=== PATIENT | female | born 1930 | race African-American/Black ===

== ENCOUNTER 2017-03-03 07:53 | Inpatient (IN) ==
[2017-03-03 08:47] LABS: Basophils % 0.8 % (0.0-0.8); Eosinophils # 0.1 10*3/uL (0.0-0.87); Eosinophils % 3.6 % (0.00-10.9); Hematocrit 34.9 VOL% (35.7-47.0); Hemoglobin 12.1 GM/DL (12.0-16.0); Immature Granulocytes % 0.3 %; Immature Granulocytes Absolute 0.01 #; Lymphocytes # 1.4 10*3/uL (1.4-4.0); Lymphocytes % 35.7 % (21.3-54.2); Mean Corpuscular HGB Conc 34.7 GM/DL (32-36); Mean Corpuscular Hemoglobin 31 PG (27-34); Mean Corpuscular Volume 87.9 FL (87-102); Mean Platelet Volume 10.4 FL (9.6-12.0); Monocytes # 0.4 10*3/uL (0.11-0.8); Monocytes % 10.7 % (1.7-12.7); Neutrophils # 1.9 10*3/uL (1.4-7.4); Neutrophils % 48.9 % (38.7-73.9); Platelet Count 216 T/CUMM (130-400); Red Blood Count 3.97 MC/CUMM (3.8-5.5); Red Cell Distribution Width 13.2 % (9.3-17.3); White Blood Count 3.8 T/CUMM (4-12)
[2017-03-03 09:01] LABS: Apearance,Urine Slightly Hazy (Clear); Bilirubin,Urine Negative (Negative); Blood, Urine Negative (Negative); Glucose,Urine (UA) Negative (Negative); Ketones,Urine Negative (Negative); Nitrite,Urine Negative (Negative); Protein,Urine Negative; RBC,Urine 5 /HPF (0-4); Squamous Epithelial Cell,Urine Occasional /HPF (0-10); Urine Color Yellow (Yellow); Urine Specific Gravity 1.009 (1.001-1.035); Urine Urobilinogen < 2.0 EU/DL (0.2-1.0); WBC,Urine 102 /HPF (0-6)
--- NOTE | 2017-03-03 09:04 | XRay Report ---
XR chest 1V portable Indication: Chest pain Comparison: Chest x-ray dated July 22, 2014 Technique: Single frontal view of the chest. Findings: The cardiomediastinal silhouette is stable in configuration. Chronic change of the lungs without focal consolidation, pleural effusion, or pneumothorax. Visualized osseous and surrounding soft tissue structures appear grossly unchanged. IMPRESSION: Stable chest x-ray without acute cardiopulmonary process demonstrated. PROCEDURE INTERPRETED AT [facility] DEPARTMENT OF RADIOLOGY Final Report Signed by: Dr Sherif Mello
[2017-03-03 09:05] LABS: Albumin 3.4 G/DL (3.4-5.0); Bilirubin,Total 0.7 MG/DL (0.2-1.0); CKMB % 9.4 %; Magnesium 2.1 MG/DL (1.8-2.4); Potassium 4.3 MMOL/L (3.5-5.1); Total Protein 6.4 G/DL (6.4-8.3)
[2017-03-03 09:13] LABS: Troponin I Only 0.602 NG/ML (0.00-0.045)
--- NOTE | 2017-03-03 09:29 | Emergency Department Note ---
Hans Bell Brittany, am scribing for, and in the presence of, Manpreet Pozo MD 08:45. Sánchez Bell Phillip K, MD, personally performed the services described in this documentation, ascribed by Catia Maxwell in my presence, and it is both accurate and complete 928 . Arrival - Arrival Chief Complaint: Chest Pain Stated Complaint: Chest Pain ED Nursing Triage Note: Pt states that her chest pain started this morning at 0500. It is raidiating from the mid sternal region to her back on the right side. Denies any other complaints at present. Mode of Arrival: Stretcher Limitations: No Limitations Source: Patient, Family Time Seen by Provider: 03/03/17 08:14 - History of Present Illness HPI Narrative: This is an 86 y/o black female,who presents to the ED with c/o CP which started at 0500 this morning. She states she was at rest when the chest pain started. She notes the chest pain radiates into her back. She localizes the chest pain to the right chest area. She denies any cough, fever or SOB. She reports the chest pain comes and goes and lasts up to 2-3 minutes. Pt denies having a heart cath or stress test. Pt has no other complaints/pain in the ED at this time. Pt has a PMHx of HTN, thyroid disorder, and back/neck problems. Pt denies a surgical Hx. Pt denies a family medical Hx. Pt denies a social hx. Onset (ago): hour(s) (Started earlier this morning) Consistency: intermittent Severity: moderate Quality: aching Date of Last Menstrual Period: Hysterectomy Allergies/Adverse Reactions: Allergies Allergy/AdvReac Type Severity Reaction Status Date / Time No Known Allergies Allergy Verified 05/19/16 06:16 Home Medications: Home Medications Medication Instructions Recorded Confirmed Type Aspirin [Children's Aspirin] 81 mg PO DAILY 12/21/14 05/18/16 History Carvedilol [Coreg] 3.125 mg PO BID W/MEALS 12/21/14 05/19/16 History Meclizine [Antivert] 25 mg PO BID 12/21/14 05/19/16 History Cholecalciferol (Vitamin D3) 1,000 unit PO DAILY 05/18/16 05/19/16 History [Vitamin D3] Magnesium Oxide [Magnesium] 400 mg PO BID 05/18/16 05/19/16 History HYDROcodone/ACETAMIN 5-325 [[place] 1 - 2 tablet PO Q6H PRN #20 tablet 05/22/16 Rx 5-325] Review of System - Review of System 12 point system: reviewed and no additional remarkable complaints except as stated - Review of System Constitutional: Absent: fever Respiratory: Absent: cough Cardiovascular: Present: chest pain Gastrointestinal: Present: nausea Medical,Surgical,& Family Hx - Medical History Cardio: History of: Hypertension Neurology: No history of: Seizures Endocrine: History of: Thyroid Disorder Musculoskeletal: History of: Back/Neck Problems - Social History Smoking Status: Never smoker Frequency of Alcohol Use: None Type of Drug Use: None Exam Vital Signs: Vital Signs Temperature 96.8 F L 03/03/17 07:54 Pulse Rate 71 03/03/17 09:00 Respiratory Rate 25 H 03/03/17 09:00 Blood Pressure 146/67 03/03/17 09:00 O2 Sat by Pulse Oximetry 99 03/03/17 09:00 - General General appearance: alert, in no apparent distress - Head Head exam: Present: atraumatic, normocephalic, normal inspection - Eye Eye exam: Present: normal appearance, PERRL, EOMI. Absent: nystagmus, miosis, mydriasis - ENT ENT exam: Present: normal exam, normal oropharynx, mucous membranes moist, TM's normal bilaterally, normal external ear exam - Neck Neck exam: Present: normal inspection, full ROM, trachea midline. Absent: tenderness, meningismus, lymphadenopathy, thyromegaly - Chest Chest inspection: Present: symmetric chest wall rise, tenderness (Right sided anterior chest wall tenderness). Absent: rash, abscess - Respiratory Respiratory exam: Present: normal lung sounds bilaterally. Absent: prolonged expiratory phase, rales, respiratory distress, rhonchi, stridor, wheezes - Cardiovascular Cardiovascular exam: Present: bradycardia, irregular rhythm, normal heart sounds. Absent: murmur, rubs, gallop, clicks, JVD - Abdominal Exam Abdominal exam: Present: soft, normal bowel sounds. Absent: distention, tenderness, guarding, rebound, rigidity - Rectal Exam Rectal exam: Present: deferred - Extremities Exam Extremities exam: Present: normal capillary refill, pedal edema (Trace of Pedal edema to the BLE). Absent: calf tenderness - Back Exam Back exam: Present: normal inspection, full ROM. Absent: tenderness, muscle spasm, rashes - Neurological Exam Neurological exam: Present: alert, oriented X3, CN II-XII intact. Absent: motor sensory deficit - Psychiatric Psychiatric exam: Present: normal affect, normal mood. Absent: depressed, agitated, anxious, flat affect, manic - Skin Skin exam: Present: warm, dry, intact, normal color. Absent: rash, cyanosis, diaphoresis, erythema, pallor, mottled Course Course Narrative: Patient discussed with Dr. Marquis Results - Labs CBC & BMP: 03/03/17 08:22 03/03/17 08:22 Lab Results: I have reviewed the patients labs (Troponin 0.6 CK-MB is also elevated) - EKG EKG results: interpreted by MARIANNE, sinus rhythm (Nonspecific ST-T changes) - Diagnostic Findings Procedure: Chest x-ray: report reviewed by me (Stable chest x-ray without acute cardiopulmonary process demonstrated.) Disposition Clinical Impression: Chest pain, Possible non-ST elevation VA Case discussed with: patient, patient's family Disposition: Still a Patient Condition: Guarded Additional Instructions: Admit to Dr. Marquis
[2017-03-03] MEDS ORDERED: ENOXAPARIN 100 MG/ML SYRINGE SUBCUT STA (09:33)
--- NOTE | 2017-03-03 09:34 | EKG Report ---
Stationary ECG Study [facility] ER Test Date: 03/03/2017 8:03:58 AM Pat Name: BRIA BAUER Department: Room: Gender: F [facility] [employer] Teacher: : 1930 Requested by: Manpreet Forrest Order Number: [id number] Reading MD: NICOLA PLATT Intervals [place] Rate: 54 P: 37 NM: 240 QRS: -20 QRSD: 97 T: -6 QT: 406 QTc: 392 Interpretive Statements SINUS BRADYCARDIA WITH first-degree A-V B AT 54 BPM LOW QRS VOLTAGE IN PRECORDIAL LEADS S1-S2-S3 PATTERN, CONSISTENT WITH PULMONARY DISEASE, RVH, OR NORMAL VARIANT NST; CONSIDER ISCHEMIA Electronically Signed On 03-03-17 10:24:31 CDT by NICOLA PLATT [email or web address]
[2017-03-03] MEDS ORDERED: ENOXAPARIN 80 MG/0.8 ML SYRINGE SUBCUT ONE (09:41)
[2017-03-03] MEDS ORDERED: ASPIRIN EC 325 MG TABLET PO STA (10:27)
[2017-03-03] MEDS ORDERED: NITROGLYCERIN 2% OINT 1 INCH/GM PACK TOP STA (10:27)
[2017-03-03] MEDS ORDERED: ATORVASTATIN 40 MG TABLET PO STA (10:27)
[2017-03-03 10:37] LABS: INR 1.1; PT Patient Result 11.4 SECS
[2017-03-03] MEDS ORDERED: MAGNESIUM SULF RIDER 4 GM in PREMIX 1 EACH IV PRN (10:41)
[2017-03-03] MEDS ORDERED: ONDANSETRON 4 MG/2 ML VIAL IV PRN (10:41)
[2017-03-03] MEDS ORDERED: MORPHINE 2 MG/1 ML SYRINGE IV PRN (10:41)
[2017-03-03] MEDS ORDERED: DOCUSATE SODIUM 100 MG CAPSULE PO PRN (10:41)
[2017-03-03] MEDS ORDERED: MAGNESIUM SULF RIDER 2 GM in PREMIX 1 EACH IV PRN ×2 (10:41→10:44)
[2017-03-03] MEDS ORDERED: BISACODYL 5 MG TABLET PO PRN (10:41)
[2017-03-03] MEDS ORDERED: ACETAMINOPHEN 325 MG TABLET PO PRN (10:41)
[2017-03-03] MEDS ORDERED: POTASSIUM CHLORIDE RIDER 10 MEQ in PREMIX 1 EACH IV PRN (10:44)
[2017-03-03] MEDS ORDERED: diphenhydrAMINE CAP 25 MG CAPSULE PO ONE (10:44)
[2017-03-03] MEDS ORDERED: ASPIRIN 325 MG TABLET PO ONE (10:44)
[2017-03-03] MEDS ORDERED: DIAZEPAM 5 MG TABLET PO ONE (10:44)
[2017-03-03] MEDS ORDERED: NITROGLYCERIN 2% OINT 1 INCH/GM PACK TOP ONE (10:51)
[2017-03-03] MEDS ORDERED: ASPIRIN 325 MG TABLET ONE (10:51)
[2017-03-03] MEDS ORDERED: ATORVASTATIN 40 MG TABLET ONE (10:51)
--- NOTE | 2017-03-03 10:55 | Cardiology History & Physical ---
Assessment and Plan - Time spent with patient Time spent with patient: Greater than 30 minutes (1) UTI (urinary tract infection) Status: Acute Assessment and plan: SEE PLAN OF CARE LISTED BELOW Current Visit: Yes (2) Advanced age Status: Chronic Assessment and plan: SEE PLAN OF CARE LISTED BELOW Current Visit: Yes (3) Abnormal EKG Status: Acute Assessment and plan: SEE PLAN OF CARE LISTED BELOW Current Visit: Yes (4) Chest pain Status: Acute Assessment and plan: SEE PLAN OF CARE LISTED BELOW Current Visit: Yes Qualifiers: Ischemic chest pain type: stable angina pectoris (5) Hypertension Status: Chronic Assessment and plan: SEE PLAN OF CARE LISTED BELOW Current Visit: No (6) S/p nephrectomy Status: Resolved Assessment and plan: SEE PLAN OF CARE LISTED BELOW Current Visit: No History of Present Illness Chief complaint: CHEST PAIN History of present illness: ESCROW CLOSER: (NEW) DR. BADILLO PCP: DR. MALLIKA SAAVEDRA Patient is being seen in the emergency department Ms. Yeager, 86BF, has risk factors significant for: Advanced age, hypertension, sedentary lifestyle. History of chronic back pain for which she sees Dr. Rodas routinely. 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 Tumor was benign. This morning, around 0500, patient was awakened with mid sternal chest "pressure " radiating to the right side of chest and through to her right scapula. It was associated with nausea, vomiting, shortness of breath. This lasted approximately 30-45 minutes and relieved itself after she took her morning medicines including an aspirin and a beta-ander. She rates the discomfort as a 7 on a scale of 1-10, currently chest pain-free. She can identify no aggravating factors and has never experienced this type of discomfort before. She was brought to the ED [facility] where her EKG was abnormal, revealing ST depression inferiorly. Troponin elevated at 0.6. She has received full strength aspirin and beta-ander prior to arrival. She has had Lovenox, lipid- lowering agent and nitrates. At this time, I will keep her NPO, discuss with Dr. Badillo and await additional recommendations. ASSESSMENT/PLAN: 1. CHEST PAIN - Concerning for angina. 2. ABNORMAL EKG - concerning for inferior NSTEMI. She has received appropriate medications including ASA, betablocker, lipid lowering agent and nitrates. 3. HYPERTENSION - usually well controlled per patient report. 4. CHRONIC BACK PAIN - this does limit her physical activities. Managed by Dr. Rodas. 5. ADVANCED AGE - patient does have chronic pain which limits her physical activities. Otherwise, she is a good candidate for cardiac catheterization. 6. UTI - will treat with Ceftrizone initially, await cultures. Home Medications Medication Instructions Recorded Confirmed Type Aspirin [Children's Aspirin] 81 mg PO QAM 12/21/14 03/03/17 History Meclizine [Antivert] 25 mg PO BID 12/21/14 03/03/17 History Carvedilol [Carvedilol] 6.25 mg PO BID 03/03/17 03/03/17 History Allergies Allergy/AdvReac Type Severity Reaction Status Date / Time No Known Allergies Allergy Verified 05/19/16 06:16 Review of systems: REVIEW OF SYSTEMS: See HPI - Constitutional Constitutional: Present: Fatigue. Absent: syncope, anorexia, night sweats - EENT Eyes: Absent: blurry vision, loss of vision, diplopia Ears: Absent: decreased hearing, ear pain, ear discharge - Cardiovascular Cardiovascular: Present: chest pain at rest. Recent dyspnea at rest. Denies edema, palpitations. Absent: chest pain with deep breath, claudication - Respiratory Respiratory: Present: [place], denies cough. Absent: wheezing, hemoptysis, change in phlegm color - Gastrointestinal Gastrointestinal: Nausea with vomiting this morning while having chest pain. Denies: constipation. Absent: abdominal pain, hematemesis, hematochezia, melena, change in bowel habits - Genitourinary Genitourinary: Absent: difficulty urinating, dysuria, urinary hesitancy, flank pain - Musculoskeletal Musculoskeletal: Present: Chronic back pain Absent: joint swelling, muscle cramps, muscle weakness - Neurological Neurological: Present: normal gait without frequent falls. Absent: dizziness, hemiparesis - Psychiatric Psychiatric: Absent: anxiety, depression, difficulty concentrating - Endocrine Endocrine: Absent: cold intolerance, heat intolerance, polyuria, polyphagia, polydipsia - Hematologic/Lymphatic Hematologic/Lymphatic: Present: easy bruising. Absent: easy bleeding -Integumentary Integumentary: Absent: lesions, rashes, skin breakdown Medical,Surgical,& Family Hx - Medical History Cardio: History of: Hypertension No history of: Cardiac Dysrhythmia, CAD, DC, Valvular Heart Disease Psychological: No history of: Depression, Schizophrenia Neurology: No history of: Cerebral Hemorrhage, Cerebrovascular Accident, Seizures, TIA Endocrine: History of: Thyroid Disorder No history of: Diabetes Mellitus (IDDM), Diabetes Mellitus (NIDDM) Musculoskeletal: History of: Back/Neck Problems - Surgical History Cardiac Surgeries: Patient Denies: Cardiac Surgery, Carotid Endarterectomy Reproductive Surgeries: Surgical HX of;: Hysterectomy Additional Surgical History: Nephrectomy, left - Social History Smoking Status: Never smoker Have you smoked in the last 12 months: No Frequency of Alcohol Use: None Type of Drug Use: None Marital Status: Lives With:: Lives with grandson Cardiology Physical Exam - Constitutional Vitals: Vital Signs Temp Pulse Resp BP Pulse Ox 96.8 F L 55 L 17 156/72 100 03/03/17 07:54 03/03/17 09:30 03/03/17 09:30 03/03/17 09:30 03/03/17 09:30 Intake and Output 03/02/17 03/03/17 03/03/17 23:59 07:59 15:59 Intake Total 300 / 300 Balance 300 / 300 Intake: Intake - Additional IV 300 / 300 Volume (mLs) Left 300 / 300 Other: Weight 70.307 kg Patient Weight 03/03/17 23:59 Weight 70.307 kg Exam: General: [Appears well with no apparent distress.] [Pleasant and cooperative. ] [Appears comfortable.] HEENT: [Bilateral arcus, normocephalic, atraumatic. Mucous membranes moist. No jaundice noted. Conjunctiva moist and clear, sclerae anicteric] Neck: No JVD/HJR, no thyromegaly or lymphadenopathy noted. No carotid bruit appreciated Cardiac: [Regular rate and rhythm.] [No obvious murmur, rub or gallop.] Lungs: [Clear to auscultation without accessory muscle use to assist the respiratory pattern.] Oxygen in use via nasal cannula Abdomen: Soft, bowel sounds normoactive. Nontender and nondistended. No abdominal bruit or thrill noted. No masses noted. Musculoskeletal: No fluid collection. Decreased range of motion is noted. Extremities: No clubbing, cyanosis noted. [ No edema noted.] Upper extremity pulses 2+. Lower extremity pulses 2+. Capillary refill less than 3 seconds. Skin: No unusual lesions or rashes. No skin breakdown appreciated. Neuro: Awake, alert and oriented 3. Moves all extremities well without hemiparesis or paralysis. No essential tremor is appreciated. Result/EKG - Labs CBC & BMP: 03/03/17 08:22 03/03/17 08:22 Lab Results: I have reviewed the past 24 hour labs Labs: Laboratory Results - last 24 hr 03/03/17 03/03/17 03/03/17 08:22 08:22 08:22 WBC 3.8 L RBC 3.97 Hgb 12.1 Hct 34.9 L MCV 87.9 MCH 31 MCHC 34.7 RDW 13.2 Plt Count 216 MPV 10.4 Neut % (Auto) 48.9 Lymph % (Auto) 35.7 [place] % (Auto) 10.7 Eos % (Auto) 3.6 Baso % (Auto) 0.8 Neut # (Auto) 1.9 Lymph # (Auto) 1.4 [place] # (Auto) 0.4 Eos # (Auto) 0.1 Baso # (Auto) 0.0 Immature Gran % 0.3 Nucleated RBC % 0.0 Immature Gran # 0.01 Nucleated RBCs # 0.00 INR 1.1 PT Patient/Control Mix 11.4 Sodium 143 Potassium 4.3 Chloride 109 H Carbon Dioxide 26 Anion Gap 12.3 BUN 18 Creatinine 0.80 GFR Calculation 78 BUN/Creatinine Ratio 22.00 H Glucose 121 H Calculated Osmolality 287.0 Calcium 9.0 Magnesium 2.1 Total Bilirubin 0.70 AST 14 ALT 12 L Alkaline Phosphatase 110 Total Creatine Kinase 90 CK-MB (CK-2) 8.5 H CK and CKMB Interp 9.4 Troponin I 0.602 H Total Protein 6.4 Albumin 3.4 Globulin 3.0 Albumin/Globulin Ratio 1.1 Urine Color Urine Appearance Urine pH Ur Specific [place] Urine Protein Urine Glucose (UA) Urine Ketones Urine Blood Urine Nitrate Urine Bilirubin Urine Urobilinogen Urine Leukocytes Urine RBC Urine WBC Urine WBC Clumps Ur Squamous Epith Cells Ur Culture Indicated? 03/03/17 08:51 WBC RBC Hgb Hct MCV MCH MCHC RDW Plt Count MPV Neut % (Auto) Lymph % (Auto) [place] % (Auto) Eos % (Auto) Baso % (Auto) Neut # (Auto) Lymph # (Auto) [place] # (Auto) Eos # (Auto) Baso # (Auto) Immature Gran % Nucleated RBC % Immature Gran # Nucleated RBCs # INR PT Patient/Control Mix Sodium Potassium Chloride Carbon Dioxide Anion Gap BUN Creatinine GFR Calculation BUN/Creatinine Ratio Glucose Calculated Osmolality Calcium Magnesium Total Bilirubin AST ALT Alkaline Phosphatase Total Creatine Kinase CK-MB (CK-2) CK and CKMB Interp Troponin I Total Protein Albumin Globulin Albumin/Globulin Ratio Urine Color Yellow Urine Appearance Slightly hazy Urine pH 7.0 Ur Specific [place] 1.009 Urine Protein Negative Urine Glucose (UA) Negative Urine Ketones Negative Urine Blood Negative Urine Nitrate Negative Urine Bilirubin Negative Urine Urobilinogen < 2.0 H Urine Leukocytes Large H Urine RBC 5 Urine WBC 102 Urine WBC Clumps Occasional Ur Squamous Epith Cells Occasional Ur Culture Indicated? Results to follow - Diagnostic Findings Procedure: Chest x-ray: report reviewed by me - EKG EKG results: interpreted by me, sinus rhythm (ST changes inferiorly)
[2017-03-03] MEDS ORDERED: LIDOCAINE 1% 20 ML VIAL ONE (12:34)
[2017-03-03] MEDS ORDERED: MEPERIDINE 25 MG/1 ML VIAL ONE (12:35)
[2017-03-03] MEDS ORDERED: MIDAZOLAM 2 MG/2 ML VIAL ONE (12:35)
--- NOTE | 2017-03-03 12:44 | History and Physical Update ---
Sedation H&P Update - History and Physical H&P was reviewed, the patient examined and there: are no changes in the patients condition since last H&P was completed. - Dictation Physical: refer to H&P completed by admitting physician - Physical Exam Mental Status: alert and oriented Heart: regular rate and rhythm Lung: clear to auscultation Abdomen: within normal limits Vitals: within normal limits - Sedation Plan for Sedation: minimal Patient Consent: Procedure disscussed with patient and patinet has consented., Risks and benefits were discussed with patient,including infection,, bleeding, injury to surrounding structures, seizure, temporary nerve, Patient understands and accepts potential risks/benefits and agrees to, proceed. ASA Class: II Airway Assessment: Class II: Soft palate, uvula, fauces visible
[2017-03-03] MEDS ORDERED: TIROFIBAN 5,000 MCG/100 ML PREMIX IV ONE (13:10)
--- NOTE | 2017-03-03 13:56 | Operative Note ---
Date of procedure: 03/03/17 Procedure Preformed: Left heart cath Coronary angiography Left ventriculography Aggrastat bolus and infusion Stent of the left circumflex obtuse [id number] could get the wire to slightly cross the lesion but I could not get a balloon to follow the wire around the tortuous, hair pin curve of the proximal circumflex-to be treated medically Angiogram of the right femoral artery Angio-Seal of the right femoral artery-successful Surgeon / Physician: [place] [employer] Helper: Aidan Robin Post-op diagnosis: same (recent onset severe anterior substernal chest pain associated with mild diaphoresis, mild nausea, wyman zone troponin, wyman zone CK- MB, and equivocal ischemic EKG changes EKG. The patient is referred for diagnostic catheterization and possible intervention of what may be a non-STEMI. ) Findings: Impression: Occluded first obtuse marginal left circumflex-likely the infarct-related vessel , non-STEMI Mild disease in other vessels Moderate disease involving a small, codominant mid right coronary which supplies very little of the left ventricle, mainly staying in the AV groove Normal global/regional left systolic function, overall ejection is greater than 55 - 60% Moderate elevation of LVEDP, 18 mmHg Aggrastat bolus infusion-for PCI Attempted stent of the obtuse [id number] could get the wire to and into the lesion but the balloon would not track to be able to get to it because of the proximal tortuosities/hair pin curve of the obtuse marginal Angiogram of the right femoral artery Angio-Seal of the right femoral artery-successful Plan/progress: Based on the study, the patient has CAD/an occluded obtuse marginal which caused her non-STEMI. She will be treated medically. Because of bradycardia I will not use a beta-ander. Her blood pressure will be controlled. If her renal function is good the day after the cath, we will add an AVERY inhibitor. She will be on some nitrates. She was on aspirin a day indefinitely. She will have a statin. will check her lipids and will treat per guidelines. She will be followed. Addenda: I saw the patient post-cath. the groin puncture site and distal pulse are stable. vital signs are stable and the patient will be observed closely overnight. Specimens: none sent Estimated blood loss: minimal Condition: stable Anesthesia: local, conscious sedation Disposition: floor
[2017-03-03] MEDS: SODIUM CHLORIDE 0.45% 1,000 ML IV SCH (15:27)
[2017-03-03 15:37] LABS: Basophils % 0.5 % (0.0-0.8); Eosinophils # 0.1 10*3/uL (0.0-0.87); Eosinophils % 2.6 % (0.00-10.9); Hematocrit 37.1 VOL% (35.7-47.0); Hemoglobin 12.6 GM/DL (12.0-16.0); Immature Granulocytes % 0.2 %; Immature Granulocytes Absolute 0.01 #; Lymphocytes # 1.8 10*3/uL (1.4-4.0); Lymphocytes % 42.9 % (21.3-54.2); Mean Corpuscular Hemoglobin 30 PG (27-34); Mean Corpuscular Volume 88.8 FL (87-102); Mean Platelet Volume 10.7 FL (9.6-12.0); Monocytes # 0.5 10*3/uL (0.11-0.8); Monocytes % 11.7 % (1.7-12.7); Neutrophils # 1.8 10*3/uL (1.4-7.4); Neutrophils % 42.1 % (38.7-73.9); Platelet Count 220 T/CUMM (130-400); Red Blood Count 4.18 MC/CUMM (3.8-5.5); Red Cell Distribution Width 13.3 % (9.3-17.3); White Blood Count 4.3 T/CUMM (4-12)
[2017-03-03] MEDS ORDERED: LEVOFLOXACIN 500 MG TABLET PO SCH (17:00)
[2017-03-03] MEDS: PANTOPRAZOLE 40 MG TABLET PO SCH (17:04)
[2017-03-03 19:35] LABS: CKMB % 16.4 %
[2017-03-03 19:37] LABS: Troponin I Only 9.29 NG/ML (0.00-0.045)
--- NOTE | 2017-03-03 19:57 | Cardiology Operative Report ---
Date of Procedure:: 03/03/17 Post-op diagnosis: same (recent onset severe anterior substernal chest pain associated with mild diaphoresis, mild nausea, wyman zone troponin, wyman zone CK- MB, and equivocal ischemic EKG changes EKG. The patient is referred for diagnostic catheterization and possible intervention of what may be a non-STEMI. ) Procedure: Date of procedure: 03/03/17 Procedure Preformed: Left heart cath Coronary angiography Left ventriculography Aggrastat bolus and infusion Stent of the left circumflex obtuse nkjxgdix-lutwwdepnfvb-L could get the wire to slightly cross the lesion but I could not get a balloon to follow the wire around the tortuous, hair pin curve of the proximal circumflex-to be treated medically Angiogram of the right femoral artery Angio-Seal of the right femoral artery-successful Surgeon / Physician: [place] Aviation Support Equipment Repairer: Aidan Robin Post-op diagnosis: same (recent onset severe anterior substernal chest pain associated with mild diaphoresis, mild nausea, wyman zone troponin, wyman zone CK- MB, and equivocal ischemic EKG changes EKG. The patient is referred for diagnostic catheterization and possible intervention of what may be a non-STEMI. ) procedure: The patient was prepped and draped in usual manner. Entered the right femoral artery via the Seldinger technique. I used a sheath and then used a JL4 and engaged left coronary. Multiple views were taken. I then exchanged for a JR4. Multiple views of the right coronary were taken. I then exchanged for an angled pigtail. I crossed the valve. Left ventricular end-diastolic pressures measured. Left ventriculography was done. Left ventricle pullback was done. The catheters were then removed from the patient. Please see the data sheets for the details of catheters used. Intervention: Cardiovascular surgery was available for any complications. The coronary intervention was done using a EBU 4.0 guiding catheter and a 0.014 run through wire. With some difficulty I was able to get the wire around the hairpin curve of the circumflex it was entering into the obtuse marginal lesion. It could not be pushed very far. I then attempted to take a apex balloon around the corner and getting closer to it, to help drive the wire into the obtuse marginal. However , when I was trying to make the curve continue to prolapse down the LAD. Thus, it was assessed that the risks were beginning to be greater than the potential benefits so did not persist. The wire and the catheter removed. Final diagnostic angiography revealed no change in the proximal circumflex or the occluded vessel/obtuse marginal. Angiogram of the right femoral artery was done, either at that time or as a follow-through from the aortogram/left ventriculogram. Closure device was used -see data sheets. patient was transferred to her room on telemetry in satisfactory condition. Please see the cath report for details of the pressures and times. Complications: none Hemodynamic data: LVEDP was 18 mmHg. Angiographic data: The left main coronary was large and had minimal luminal irregularities. The left anterior descending artery was large. There is one major diagonal. There were minimal luminal irregularities in this vessel The left circumflex system was moderate to large. It was 1 major obtuse marginal and 1 posterior lateral branches. The first obtuse marginal was totally occluded and there is appearance of a thrombus within the proximal portion of it. The ramus intermedius was large and had minimal luminal irregularities The right coronary artery was large in size, codominant vessel with the PDA-- very small. There were some moderate disease in the midportion of the right coronary but the distal vessel barely came out of the AV groove. It was not of medical significance. LAND left ventriculography revealed normal global/regional left ventricular systolic function. Overall ejection fraction was at least 55%. There is no significant mitral regurgitation. After attempted crossing of the obtuse marginal there is no change in the proximal circumflex or of the occluded obtuse marginal. . Angiogram of the right femoral artery revealed the puncture site to be in a large vessel, above the bifurcation. It was suitable for a clocure device. Impression: Occluded first obtuse marginal left circumflex-likely the infarct-related vessel , non-STEMI Mild disease in other vessels Moderate disease involving a small, codominant mid right coronary which supplies very little of the left ventricle, mainly staying in the AV groove Normal global/regional left systolic function, overall ejection is greater than 55 - 60% Moderate elevation of LVEDP, 18 mmHg Aggrastat bolus infusion-for PCI Attempted stent of the obtuse vperxiqc-uhfgicfhslyi-J could get the wire to and into the lesion but the balloon would not track to be able to get to it because of the proximal tortuosities/hair pin curve of the obtuse marginal Angiogram of the right femoral artery Angio-Seal of the right femoral artery-successful Plan/progress: Based on the study, the patient has CAD/an occluded obtuse marginal which caused her non-STEMI. She will be treated medically. Because of bradycardia I will not use a beta-ander. Her blood pressure will be controlled. If her renal function is good the day after the cath, we will add an AVERY inhibitor. She will be on some nitrates. She was on aspirin a day indefinitely. She will have a statin. will check her lipids and will treat per guidelines. She will be followed. Addenda: I saw the patient post-cath. the groin puncture site and distal pulse are stable. vital signs are stable and the patient will be observed closely overnight. Specimens: none sent Estimated blood loss: minimal Condition: stable Anesthesia: local, conscious sedation Disposition: floor Additional CC's: [place] Anesthesia: local, minimal conscious sedation Surgeon / Physician: [place] Aviation Support Equipment Repairer: other Estimated blood loss: minimal Specimens: none sent Condition: stable Disposition: floor
[2017-03-03] MEDS: CIPROFLOXACIN 500 MG TABLET PO SCH (21:32)
[2017-03-04 04:04] LABS: Basophils % 0.4 % (0.0-0.8); Eosinophils # 0.1 10*3/uL (0.0-0.87); Eosinophils % 2.4 % (0.00-10.9); Hematocrit 37.1 VOL% (35.7-47.0); Hemoglobin 12.6 GM/DL (12.0-16.0); Immature Granulocytes % 0.4 %; Immature Granulocytes Absolute 0.02 #; Lymphocytes # 1.3 10*3/uL (1.4-4.0); Lymphocytes % 26.7 % (21.3-54.2); Mean Corpuscular Hemoglobin 30 PG (27-34); Mean Corpuscular Volume 87.7 FL (87-102); Mean Platelet Volume 11.1 FL (9.6-12.0); Monocytes # 0.8 10*3/uL (0.11-0.8); Neutrophils # 2.6 10*3/uL (1.4-7.4); Neutrophils % 53.1 % (38.7-73.9); Platelet Count 174 T/CUMM (130-400); Red Blood Count 4.23 MC/CUMM (3.8-5.5); Red Cell Distribution Width 13.4 % (9.3-17.3)
[2017-03-04 04:43] LABS: Albumin 3.3 G/DL (3.4-5.0); Bilirubin,Total 1.2 MG/DL (0.2-1.0); Calcium 9.1 MG/DL (8.5-10.1); Magnesium 2.1 MG/DL (1.8-2.4); Osmolality,Calculated 274.7 MOS/KG (273-304); Potassium 4.7 MMOL/L (3.5-5.1); Risk Ratio 3.78; Total Protein 6.3 G/DL (6.4-8.3); VLDL CHOLESTEROL 17.8 MG/DL
[2017-03-04 05:00] LABS: CKMB % 15.7 %; Eosinophils 4 % (0-10); Lymphocytes 25 % (20-55); Segmented Neutrophils 54 % (50-85); Total Cells Counted 100
[2017-03-04 05:01] LABS: Elliptocytes Few; Platelet Estimate Normal
[2017-03-04 05:03] LABS: Troponin I Only 17.2 NG/ML (0.00-0.045)
--- NOTE | 2017-03-04 07:31 | EKG Report ---
Stationary ECG Study [facility] Test Date: 03/04/2017 7:31:14 AM Pat Name: BRIA BAUER Department: Room: 285 Gender: F Laboratory Tech: MATTHIAS : [id number] Requested by: Darling Petersen Order Number: [id number] Reading MD: ADEN BOWDEN Intervals [place] Rate: 58 P: 73 NH: 250 QRS: 34 QRSD: 84 T: 89 QT: 413 QTc: 409 Interpretive Statements SINUS RHYTHM WITH PROLONGED NH INTERVAL Electronically Signed On 03-04-17 08:37:00 CDT by ADEN BOWDEN [email or web address]
--- NOTE | 2017-03-04 09:31 | Cardiology Progress Note ---
Addendum entered and electronically signed by Darling Menendez NP 03/04/17 15: 41: This afternoon, patient's blood pressure remains elevated. Isosorbide mononitrate 15 mg orally daily was initiated. Also, captopril was increased to 12.5 mg orally 3 times daily getting her first dose this evening. Troponin increased to 20. I have ordered another troponin for tomorrow morning. Hopefully, labs will be decreasing and she may be eligible for discharge tomorrow. Original Note: Assessment and Plan - Time spent with patient Time spent with patient: Greater than 30 minutes (1) UTI (urinary tract infection) Status: Acute Assessment and plan: SEE PLAN OF CARE LISTED BELOW Current Visit: Yes (2) Advanced age Status: Chronic Assessment and plan: SEE PLAN OF CARE LISTED BELOW Current Visit: Yes (3) Abnormal EKG Status: Chronic Assessment and plan: SEE PLAN OF CARE LISTED BELOW Current Visit: Yes (4) Chest pain Status: Resolved Assessment and plan: SEE PLAN OF CARE LISTED BELOW Current Visit: Yes Qualifiers: Ischemic chest pain type: stable angina pectoris (5) Hypertension Status: Chronic Assessment and plan: SEE PLAN OF CARE LISTED BELOW Current Visit: No (6) S/p nephrectomy Status: Resolved Assessment and plan: SEE PLAN OF CARE LISTED BELOW Current Visit: No (7) NSTEMI (non-ST elevated myocardial infarction) Status: Resolved Assessment and plan: SEE PLAN OF CARE LISTED BELOW Current Visit: Yes (8) CAD (coronary artery disease) Status: Chronic Assessment and plan: SEE PLAN OF CARE LISTED BELOW Current Visit: Yes Qualifiers: Coronary Disease-Associated Artery/Lesion type: wainwright artery [place] vs. transplanted heart: wainwright heart Associated angina: without angina Qualified Code(s): I25.10 - Atherosclerotic heart disease of wainwright coronary artery without angina pectoris Cardiology - PN: Subj Interval history: GAS PIT WORKER: (NEW) DR. BADILLO PCP: DR. MALLIKA SAAVEDRA SUMMARY: Ms. Yeager, 86BF, has risk factors significant for: Advanced age, hypertension, sedentary lifestyle. History of chronic back pain for which she sees Dr. Rodas routinely. 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 Tumor was benign. February 01, 2017, patient was awakened with chest pain concerning for angina. She was brought to [facility] ED where her EKG was abnormal, troponin elevated at 0.6. She was diagnosed with NSTEMI. She was taken to the cardiac catheterization lab where Dr. Badillo performed heart cath with the following noted: Impression: Occluded first obtuse marginal left circumflex-likely the infarct-related vessel , non-STEMI Mild disease in other vessels Moderate disease involving a small, codominant mid right coronary which supplies very little of the left ventricle, mainly staying in the AV groove Normal global/regional left systolic function, overall ejection is greater than 55 - 60% Moderate elevation of LVEDP, 18 mmHg Attempted stenting of the obtuse nszfikoh-yeiukdloizfw-F could get the wire to and into the lesion but the balloon would not track to be able to get to it because of the proximal tortuosities/hair pin curve of the obtuse marginal Angiogram of the right femoral artery Angio-Seal of the right femoral artery-successful MARCH 04, 2017: Tolerated procedure well and without complication. She was returned to our telemetry unit overnight. Troponin increased to 17.2 and we are awaiting this morning's lab draw. She denies chest pain, heaviness or tightness. Other labs are stable. She is tolerating Aspirin, AVERY inhibitor, statin (LDL 110). Because of her bradycardia, avoiding beta-blockers. Will incorporate low dose nitrate this afternoon if blood pressure will allow. Patient has been seen and counseled by cardiac rehab personnel. Echocardiogram has been performed. She is also being treated for urinary tract infection. Patient uses a walker for ambulation. She has not been out of bed post cath. I will have physical therapy work with her this morning. Right groin is soft, free of hematoma or bruit. May be a candidate for discharge this afternoon. Will further discuss with Dr. Badillo and await additional recommendations. ASSESSMENT/PLAN: 1. NSTEMI - See [facility] report listed above. Chest pain-free. Awaiting troponin level from this morning's lab draw. 2. ABNORMAL EKG -stable. Continue current plan of care. 3. HYPERTENSION - starting AVERY inhibitor or. Avoiding joan blocking agents such as beta blockers due to bradycardia. 4. CHRONIC BACK PAIN - this does limit her physical activities. Managed by Dr. Rodas. Consulting physical therapy this morning to ambulate prior to discharge 5. ADVANCED AGE - patient does have chronic pain which limits her physical activities. 6. UTI -Cipro initiated. Afebrile, normal white blood cell count. 7. CAD - medically managed at this time. Exam (Progress Note) - Constitutional Vitals: Period Temp Pulse Resp BP Sys/Hussein Pulse Ox Last 24 Hr 97.2 F-99.2 F 44-59 14-21 134-197/59-87 95-100 Exam: General: [Appears well with no apparent distress.] [Pleasant and cooperative. ] [Appears comfortable.] HEENT: [Bilateral arcus, normocephalic, atraumatic. Mucous membranes moist, poor dentition noted. No jaundice noted. Conjunctiva moist and clear, sclerae anicteric] Neck: No JVD/HJR, no thyromegaly or lymphadenopathy noted. No carotid bruit appreciated Cardiac: [Regular rate and rhythm.] [No murmur, rub or gallop.] Lungs: [Clear to auscultation without accessory muscle use to assist the respiratory pattern.] Not requiring oxygen Abdomen: Soft, bowel sounds normoactive. Nontender and nondistended. No abdominal bruit or thrill noted. No masses noted. Musculoskeletal: No fluid collection. Decreased range of motion is noted. Extremities: Right groin soft, free of hematoma or bruit. No clubbing, cyanosis noted. [ No edema noted.] Upper extremity pulses 2+. Lower extremity pulses 2+. Capillary refill less than 3 seconds. Skin: No unusual lesions or rashes. No skin breakdown appreciated. Neuro: Awake, alert and oriented 3. Moves all extremities well without hemiparesis or paralysis. No essential tremor is appreciated. Result/EKG - Labs CBC & BMP: 03/04/17 03:48 03/04/17 03:48 Lab Results: I have reviewed the past 24 hour labs Labs: Laboratory Results - last 24 hr 03/03/17 03/03/17 03/03/17 08:22 14:51 18:44 WBC 4.3 RBC 4.18 Hgb 12.6 Hct 37.1 MCV 88.8 MCH 30 MCHC 34.0 RDW 13.3 Plt Count 220 MPV 10.7 Neut % (Auto) 42.1 Lymph % (Auto) 42.9 [place] % (Auto) 11.7 Eos % (Auto) 2.6 Baso % (Auto) 0.5 Neut # (Auto) 1.8 Lymph # (Auto) 1.8 [place] # (Auto) 0.5 Eos # (Auto) 0.1 Baso # (Auto) 0.0 Total Counted Immature Gran % 0.2 Nucleated RBC % 0.0 Immature Gran # 0.01 Segmented Neutrophils Lymphocytes Monocytes Eosinophils Basophils Nucleated RBCs # 0.00 Platelet Estimate Elliptocytes INR 1.1 PT Patient/Control Mix 11.4 Sodium Potassium Chloride Carbon Dioxide Anion Gap BUN Creatinine GFR Calculation BUN/Creatinine Ratio Glucose Calculated Osmolality Calcium Magnesium Total Bilirubin AST ALT Alkaline Phosphatase Total Creatine Kinase 874 H D CK-MB (CK-2) 143.0 H D CK and CKMB Interp 16.4 Troponin I 9.290 H D Total Protein Albumin Globulin Albumin/Globulin Ratio Triglycerides Cholesterol LDL Cholesterol VLDL Cholesterol HDL Cholesterol Heart Disease Risk Ratio 03/04/17 03/04/17 03/04/17 03:48 03:48 03:48 WBC 5.0 RBC 4.23 Hgb 12.6 Hct 37.1 MCV 87.7 MCH 30 MCHC 34.0 RDW 13.4 Plt Count 174 D MPV 11.1 Neut % (Auto) 53.1 Lymph % (Auto) 26.7 [place] % (Auto) 17.0 H Eos % (Auto) 2.4 Baso % (Auto) 0.4 Neut # (Auto) 2.6 Lymph # (Auto) 1.3 L [place] # (Auto) 0.8 Eos # (Auto) 0.1 Baso # (Auto) 0.0 Total Counted 100 Immature Gran % 0.4 Nucleated RBC % 0.0 Immature Gran # 0.02 Segmented Neutrophils 54 Lymphocytes 25 Monocytes 16 H Eosinophils 4 Basophils 1.0 H Nucleated RBCs # 0.00 Platelet Estimate Normal Elliptocytes Few INR PT Patient/Control Mix Sodium 138 Potassium 4.7 Chloride 105 Carbon Dioxide 24 Anion Gap 13.7 BUN 16 Creatinine 0.80 GFR Calculation 78 BUN/Creatinine Ratio 20.00 Glucose 84 Calculated Osmolality 274.7 Calcium 9.1 Magnesium 2.1 Total Bilirubin 1.20 H AST 154 H ALT 25 Alkaline Phosphatase 110 Total Creatine Kinase 1161 H D CK-MB (CK-2) 182.3 H D CK and CKMB Interp 15.7 Troponin I 17.200 H D Total Protein 6.3 L Albumin 3.3 L Globulin 3.0 Albumin/Globulin Ratio 1.1 Triglycerides 89 Cholesterol 174 LDL Cholesterol 110.0 VLDL Cholesterol 17.8 HDL Cholesterol 46 Heart Disease Risk Ratio 3.78 - Diagnostic Findings Procedure: Chest x-ray: report reviewed by me - EKG EKG results: interpreted by me EKG shows: sinus rhythm Quality Measures - VTE Contraindication to Pharmacological VTE Prophylaxis: High Risk of Bleeding Specialty Discharge - Follow Up or Referrals
[2017-03-04] MEDS: CIPROFLOXACIN 500 MG TABLET PO SCH ×2 (09:42→22:59)
[2017-03-04] MEDS: PANTOPRAZOLE 40 MG TABLET PO SCH (09:43)
[2017-03-04] MEDS ORDERED: ASPIRIN EC 325 MG TABLET PO SCH (10:00)
[2017-03-04] MEDS ORDERED: CAPTOPRIL 6.25 MG TABLET PO SCH (10:00)
[2017-03-04 10:26] LABS: CKMB % 14.2 %
[2017-03-04 10:28] LABS: Troponin I Only 20.6 NG/ML (0.00-0.045)
[2017-03-04] MEDS: ASPIRIN EC 81 MG TABLET PO SCH (11:42)
[2017-03-04] MEDS: CLOPIDOGREL 75 MG TABLET PO SCH (12:07)
[2017-03-04 17:56] LABS: CKMB % 10.1 %
[2017-03-04 18:01] LABS: Troponin I Only 25.7 NG/ML (0.00-0.045)
--- NOTE | 2017-03-04 18:16 | ECHO Report ---
Yeager[facility]mini Exam Date: 03/03/2017 12:10 Referring Physician: Technologist: Candace Jean Baptiste RDCS Age: 86 Ht (in): 64 Wt (lb): 155 Gender: F Exam Location: [facility] Echo Indications: Chest pain, unspecified, Shortness of breath, Non-ST vomiting BP: 176 / 68 HR: 48 Rhythm: Sinus Technical Quality: Good IMPRESSIONS Left ventricular ejection fraction is estimated at 60 %. Mild left ventricular hypertrophy. Moderately increased right atrial size. Moderately increased left atrial size. Mild mitral valve regurgitation. Trace aortic valve regurgitation. Trace to mild tricuspid valve regurgitation. Tricuspid regurgitation velocities suggest a PAP of 33 mmHg. MEASUREMENTS (Male / Female) Normal Values 2D ECHO LV Diastolic Diameter PLAX 3.7 cm 4.2 - 5.9 / 3.9 - 5.3 cm LV Systolic Diameter PLAX 2.3 cm LV Fractional Shortening PLAX 38.0 % IVS Diastolic Thickness 1.1 cm 0.6 - 1.0 / 0.6 - 0.9 cm LVPW Diastolic Thickness 1.1 cm 0.6 - 1.0 / 0.6 - 0.9 cm RV Internal Dim ED PLAX 2.3 cm Aortic Root Diameter 3.3 cm LA Systolic Diameter LX 4.6 cm 3.0 - 4.0 / 2.7 - 3.8 cm DOPPLER TR Peak Velocity 242.0 cm/s TR Peak Gradient 23.4 mmHg FINDINGS Left Ventricle Normal left ventricular cavity size. Mild left ventricular hypertrophy. Left ventricular ejection fraction is estimated at 60 %. Right Ventricle The right ventricle is normal in size and function. Right Atrium Moderately increased right atrial size. Left Atrium Moderately increased left atrial size. Mitral Valve Morphologically normal mitral valve. Mild mitral valve regurgitation. Aortic Valve The aortic valve is trileaflet and has normal motion. Trace aortic valve regurgitation. Tricuspid Valve Morphologically normal tricuspid valve. Trace to mild tricuspid valve regurgitation. Tricuspid regurgitation velocities suggest a PAP of 33 mmHg. Pulmonic Valve Morphologically normal pulmonic valve. Trace pulmonary valve regurgitation. Pericardium Normal pericardium without effusion. Aorta Normal ascending aorta dimension. New Badillo MD (Electronically Signed) Final Date: 04 March 2017 18:14
[2017-03-04] MEDS: CAPTOPRIL 6.25 MG TABLET PO SCH (22:59)
[2017-03-04] MEDS: ATORVASTATIN 40 MG TABLET PO SCH (23:00)
[2017-03-04] MEDS: ISOSORBIDE MONONITRATE 30 MG TABLET PO SCH (23:00)
[2017-03-04] MEDS: MECLIZINE 25 MG TABLET PO SCH (23:08)
[2017-03-05 06:07] LABS: Basophils % 0.2 % (0.0-0.8); Hematocrit 32.7 VOL% (35.7-47.0); Hemoglobin 11.3 GM/DL (12.0-16.0); Immature Granulocytes % 0.9 %; Immature Granulocytes Absolute 0.11 #; Lymphocytes # 1.3 10*3/uL (1.4-4.0); Mean Corpuscular HGB Conc 34.6 GM/DL (32-36); Mean Corpuscular Hemoglobin 30 PG (27-34); Mean Corpuscular Volume 87.7 FL (87-102); Monocytes # 2.2 10*3/uL (0.11-0.8); Monocytes % 17.5 % (1.7-12.7); Neutrophils # 9.1 10*3/uL (1.4-7.4); Neutrophils % 71.4 % (38.7-73.9); Platelet Count 183 T/CUMM (130-400); Red Blood Count 3.73 MC/CUMM (3.8-5.5); Red Cell Distribution Width 13.4 % (9.3-17.3); White Blood Count 12.8 T/CUMM (4-12)
[2017-03-05 06:29] LABS: Calcium 8.7 MG/DL (8.5-10.1); Magnesium 2.1 MG/DL (1.8-2.4); Osmolality,Calculated 280.5 MOS/KG (273-304); Potassium 4.2 MMOL/L (3.5-5.1)
[2017-03-05 06:35] LABS: Band Neutrophils 9 % (0-10); Lymphocytes 12 % (20-55); Metamyelocytes 1 %; Platelet Estimate Normal; Segmented Neutrophils 70 % (50-85); Total Cells Counted 100
[2017-03-05] MEDS: CAPTOPRIL 6.25 MG TABLET PO SCH (09:15)
[2017-03-05] MEDS: CIPROFLOXACIN 500 MG TABLET PO SCH ×2 (09:16→21:23)
[2017-03-05] MEDS: MECLIZINE 25 MG TABLET PO SCH ×2 (09:16→21:24)
[2017-03-05] MEDS: ASPIRIN EC 81 MG TABLET PO SCH (09:16)
[2017-03-05] MEDS: ISOSORBIDE MONONITRATE 30 MG TABLET PO SCH (09:17)
[2017-03-05] MEDS: PANTOPRAZOLE 40 MG TABLET PO SCH (09:17)
[2017-03-05] MEDS: CLOPIDOGREL 75 MG TABLET PO SCH (09:18)
--- NOTE | 2017-03-05 09:22 | Physician Query Form ---
CLICK EDIT DOCUMENT TO SELECT QUERY ANSWER --> OK --> SIGN Margareth Preston RN, CCDS Certified Clinical Deicer Repairer W) [phone] (f) [phone] [email or web address] PROVIDERS: Make your selection(s) from the choices in EACH section by typing an "x" and enter comments in the comment section. Please use your independent medical judgment in providing your response. This request does not imply that any particular answer is desired or expected. CLINICAL INDICATORS: (Providers should not edit this section) The medical record indicates that the patient was admitted with chest pain, had a heart cath, on the 6th creatinine .80 that increased to 1.40 on the 7th, GFR of 78# that has dropped to 40# on the 7th and the patient is on IVF's. Clarify which of the following most accurately represents the patient's renal status: (x ) Acute kidney injury (non-traumatic) ( ) Acute renal failure ( ) Acute renal failure with underlying Chronic Kidney Disease (CKD) - please provide stage below ( ) Acute renal failure with pathological renal lesion ( ) Acute renal failure with necrosis ( ) tubular ( ) medullary ( ) cortical ( ) CKD - please provide stage below ( ) End Stage Renal Disease ( ) Acute interstitial nephritis ( ) Hepatorenal syndrome ( x) Other, please specify: It may be contrast induced nephropathy, which we have would be a type of ATN. ----RAI hobson ( ) Clinically unable to determine Chronic Kidney Disease Stages Source: National Kid[employer] Foundation ( ) Stage I (eGFR > or = 90) ( ) Stage II (eGFR 60 - 89) ( ) Stage III (eGFR 30 - 59) ( ) Stage IV (eGFR 15 - 29) ( ) Stage V (eGFR < 15 or dialysis) COMMENTS: PLEASE ALSO DOCUMENT RESPONSE IN PROGRESS NOTES AND/OR DISCHARGE SUMMARY Use of terms such as suspected, likely, or probable (associated with a specific diagnosis that is being evaluated, monitored, or treated as if it exists) are acceptable and can be restated in the discharge summary if not ruled out. MTDD
--- NOTE | 2017-03-05 12:29 | Cardiology Progress Note ---
Assessment and Plan - Time spent with patient Time spent with patient: Greater than 30 minutes (1) UTI (urinary tract infection) Status: Acute Assessment and plan: SEE PLAN OF CARE LISTED BELOW Current Visit: Yes (2) Advanced age Status: Chronic Assessment and plan: SEE PLAN OF CARE LISTED BELOW Current Visit: Yes (3) Abnormal EKG Status: Chronic Assessment and plan: SEE PLAN OF CARE LISTED BELOW Current Visit: Yes (4) Chest pain Status: Resolved Assessment and plan: SEE PLAN OF CARE LISTED BELOW Current Visit: Yes Qualifiers: Ischemic chest pain type: stable angina pectoris (5) Hypertension Status: Chronic Assessment and plan: SEE PLAN OF CARE LISTED BELOW Current Visit: No (6) S/p nephrectomy Status: Resolved Assessment and plan: SEE PLAN OF CARE LISTED BELOW Current Visit: No (7) NSTEMI (non-ST elevated myocardial infarction) Status: Resolved Assessment and plan: SEE PLAN OF CARE LISTED BELOW Current Visit: Yes (8) CAD (coronary artery disease) Status: Chronic Assessment and plan: SEE PLAN OF CARE LISTED BELOW Current Visit: Yes Qualifiers: Coronary Disease-Associated Artery/Lesion type: [place] artery [place] vs. transplanted heart: [place] heart Associated angina: without angina Qualified Code(s): I25.10 - Atherosclerotic heart disease of [place] coronary artery without angina pectoris (9) Leukocytosis Status: Acute Assessment and plan: SEE PLAN OF CARE LISTED BELOW Current Visit: Yes (10) Acute renal insufficiency Status: Acute Assessment and plan: SEE PLAN OF CARE LISTED BELOW Current Visit: Yes Cardiology - PN: Subj Interval history: CLAIM TAKER: (NEW) DR. BADILLO PCP: DR. MALLIKA SAAVEDRA SUMMARY: Ms. Yeager, 86BF, has risk factors significant for: Advanced age, hypertension, sedentary lifestyle. History of chronic back pain for which she sees Dr. Rodas routinely. 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 Tumor was benign. February 01, 2017, patient was awakened with chest pain concerning for angina. She was brought to [facility] ED where her EKG was abnormal, troponin elevated at 0.6. She was diagnosed with NSTEMI. She was taken to the cardiac catheterization lab where Dr. Badillo performed heart cath with the following noted: Impression: Occluded first obtuse marginal left circumflex-likely the infarct-related vessel , non-STEMI Mild disease in other vessels Moderate disease involving a small, codominant mid right coronary which supplies very little of the left ventricle, mainly staying in the AV groove Normal global/regional left systolic function, overall ejection is greater than 55 - 60% Moderate elevation of LVEDP, 18 mmHg Attempted stenting of the obtuse [id number] could get the wire to and into the lesion but the balloon would not track to be able to get to it because of the proximal tortuosities/hair pin curve of the obtuse marginal Angiogram of the right femoral artery Angio-Seal of the right femoral artery-successful MARCH 04, 2017: Tolerated procedure well and without complication. She was returned to our telemetry unit overnight. Troponin increased to 17.2 and we are awaiting this morning's lab draw. She denies chest pain, heaviness or tightness. Other labs are stable. She is tolerating Aspirin, AVERY inhibitor, statin (LDL 110). Because of her bradycardia, avoiding beta-blockers. Will incorporate low dose nitrate this afternoon if blood pressure will allow. Patient has been seen and counseled by cardiac rehab personnel. Echocardiogram has been performed. She is also being treated for urinary tract infection. Patient uses a walker for ambulation. She has not been out of bed post cath. I will have physical therapy work with her this morning. Right groin is soft, free of hematoma or bruit. May be a candidate for discharge this afternoon. Will further discuss with Dr. Badillo and await additional recommendations. MARCH 05, 2017: Troponin continues to increase. This morning result is 28.1. Creatinine has increased from 0.8-1.4 this morning, likely related to use of IVP dye and lower blood pressures. Will give her a fluid challenge (EF 55-60%) . Patient simply does not feel well. No particular complaints. She denies chest pain, heaviness or tightness. During the night, she did run a fever of 100.5. WBC 12.8 this morning. She is being treated for urinary tract infection with Cipro. Culture reveals no growth at 48 hours. I will add blood cultures 2, get a chest x-ray this morning, continue with antibiotics and IV hydration. Leukocytosis, low-grade fever and fatigue may be related to her infarction. Continue to follow troponins, hydrate. I will decrease her dose of captopril as her systolic blood pressure has been running 100-110s and this may be too low for her at this time. Will further discuss with Dr. Badillo and await additional recommendations. ASSESSMENT/PLAN: 1. NSTEMI - See [facility] report listed above. Chest pain-free. Troponins still trending up and will continue to follow. 2. ABNORMAL EKG - stable. Continue current plan of care. 3. HYPERTENSION - decreasing dose of AVERY inhibitor. Avoiding joan blocking agents such as beta blockers due to bradycardia. 4. CHRONIC BACK PAIN - this does limit her physical activities. Managed by Dr. Rodas. Physical therapy has been working with patient. 5. ADVANCED AGE - patient does have chronic pain which limits her physical activities. 6. UTI - Cipro initiated. Urine culture negative at 48 hours. 7. CAD - medically managed at this time. 8. LEUKOCYTOSIS - may be related to her myocardial infarction which may actually be worse than originally thought given the elevation in her troponin. I will add blood cultures and a chest x-ray this morning. Gentle hydration. 9. ACUTE RENAL INSUFFICIENCY -likely related to use of IVP dye, hypotension and recent addition of AVERY inhibitors. Will decrease dose of avery significantly allowing for higher blood pressures, IV hydration. Continue to follow creatinine daily. Exam (Progress Note) - Constitutional Vitals: Period Temp Pulse Resp BP Sys/Hussein Pulse Ox Last 24 Hr 98.2 F-100.5 F 69-83 16-20 107-152/46-66 94-97 Exam: General: [Appears well with no apparent distress.] [Pleasant and cooperative. ] [Appears comfortable.] HEENT: [Bilateral arcus, normocephalic, atraumatic. Mucous membranes moist, poor dentition noted. No jaundice noted. Conjunctiva moist and clear, sclerae anicteric] Neck: No JVD/HJR, no thyromegaly or lymphadenopathy noted. No carotid bruit appreciated Cardiac: [Regular rate and rhythm.] [No murmur, rub or gallop.] Lungs: [Clear to auscultation without accessory muscle use to assist the respiratory pattern.] Not requiring oxygen Abdomen: Soft, bowel sounds normoactive. Nontender and nondistended. No abdominal bruit or thrill noted. No masses noted. Musculoskeletal: No fluid collection. Decreased range of motion is noted. Extremities: Right groin soft, free of hematoma or bruit. No clubbing, cyanosis noted. [ No edema noted.] Upper extremity pulses 2+. Lower extremity pulses 2+. Capillary refill less than 3 seconds. Skin: No unusual lesions or rashes. No skin breakdown appreciated. Neuro: Awake, alert and oriented 3. Moves all extremities well without hemiparesis or paralysis. No essential tremor is appreciated. Result/EKG - Labs CBC & BMP: 03/05/17 04:53 03/05/17 04:53 Lab Results: I have reviewed the past 24 hour labs Labs: Laboratory Results - last 24 hr 03/04/17 03/05/17 03/05/17 17:14 04:53 04:53 WBC 12.8 H D RBC 3.73 L Hgb 11.3 L Hct 32.7 L MCV 87.7 MCH 30 MCHC 34.6 RDW 13.4 Plt Count 183 MPV 11.0 Neut % (Auto) 71.4 Lymph % (Auto) 10.0 L [place] % (Auto) 17.5 H Eos % (Auto) 0.0 Baso % (Auto) 0.2 Neut # (Auto) 9.1 H Lymph # (Auto) 1.3 L [place] # (Auto) 2.2 H Eos # (Auto) 0.0 Baso # (Auto) 0.0 Total Counted 100 Immature Gran % 0.9 Nucleated RBC % 0.0 Immature Gran # 0.11 Segmented Neutrophils 70 Band Neutrophils 9 Lymphocytes 12 L Monocytes 8 Metamyelocytes 1 Nucleated RBCs # 0.00 Platelet Estimate Normal Pappenheimer Bodies Take Up Supervisor Sodium 139 Potassium 4.2 Chloride 106 Carbon Dioxide 23 Anion Gap 14.2 BUN 25 H Creatinine 1.40 H GFR Calculation 40 BUN/Creatinine Ratio 17.00 Glucose 96 Calculated Osmolality 280.5 Calcium 8.7 Magnesium 2.1 Total Creatine Kinase 958 H CK-MB (CK-2) 96.3 H D CK and CKMB Interp 10.1 Troponin I 25.700 H D 03/05/17 09:55 WBC RBC Hgb Hct MCV MCH MCHC RDW Plt Count MPV Neut % (Auto) Lymph % (Auto) [place] % (Auto) Eos % (Auto) Baso % (Auto) Neut # (Auto) Lymph # (Auto) [place] # (Auto) Eos # (Auto) Baso # (Auto) Total Counted Immature Gran % Nucleated RBC % Immature Gran # Segmented Neutrophils Band Neutrophils Lymphocytes Monocytes Metamyelocytes Nucleated RBCs # Platelet Estimate Pappenheimer Bodies Sodium Potassium Chloride Carbon Dioxide Anion Gap BUN Creatinine GFR Calculation BUN/Creatinine Ratio Glucose Calculated Osmolality Calcium Magnesium Total Creatine Kinase CK-MB (CK-2) CK and CKMB Interp Troponin I 28.100 H - Diagnostic Findings Procedure: Chest x-ray: pending - EKG EKG results: interpreted by me EKG shows: sinus rhythm Quality Measures - VTE Contraindication to Pharmacological VTE Prophylaxis: High Risk of Bleeding Specialty Discharge - Follow Up or Referrals
[2017-03-05] MEDS ORDERED: SODIUM CHLORIDE 0.45% 1,000 ML IV SCH (13:00)
--- NOTE | 2017-03-05 13:55 | XRay Report ---
XR chest 1V portable Indication: Leukocytosis. Chest one view: Comparison 03/03/2017. Mild cardiomegaly, tortuous thoracic aorta and severe arthritic changes of the shoulders are stable. Lungs are more hypoinflated than previous with continued nonspecific interstitial prominence. Impression: Worsening pulmonary hypoinflation. Stable cardiomegaly. PROCEDURE INTERPRETED AT [facility] DEPARTMENT OF RADIOLOGY Final Report Signed by: Jaiden Townsend M.D.
[2017-03-05] MEDS ORDERED: CAPTOPRIL 6.25 MG TABLET PO SCH (21:00)
[2017-03-05] MEDS: ATORVASTATIN 40 MG TABLET PO SCH (21:23)
[2017-03-06 05:52] LABS: Basophils % 0.3 % (0.0-0.8); Eosinophils % 0.3 % (0.00-10.9); Hematocrit 30.9 VOL% (35.7-47.0); Hemoglobin 10.6 GM/DL (12.0-16.0); Immature Granulocytes % 0.5 %; Immature Granulocytes Absolute 0.06 #; Lymphocytes # 1.9 10*3/uL (1.4-4.0); Lymphocytes % 16.4 % (21.3-54.2); Mean Corpuscular HGB Conc 34.3 GM/DL (32-36); Mean Corpuscular Hemoglobin 30 PG (27-34); Mean Platelet Volume 10.8 FL (9.6-12.0); Monocytes # 1.7 10*3/uL (0.11-0.8); Monocytes % 14.7 % (1.7-12.7); Neutrophils # 7.8 10*3/uL (1.4-7.4); Neutrophils % 67.8 % (38.7-73.9); Platelet Count 166 T/CUMM (130-400); Red Blood Count 3.55 MC/CUMM (3.8-5.5); Red Cell Distribution Width 13.6 % (9.3-17.3); White Blood Count 11.5 T/CUMM (4-12)
[2017-03-06 06:16] LABS: Calcium 7.9 MG/DL (8.5-10.1); Osmolality,Calculated 281.7 MOS/KG (273-304)
[2017-03-06] MEDS: SODIUM CHLORIDE 0.45% 1,000 ML IV SCH ×5 (07:59→18:46)
[2017-03-06] MEDS: CLOPIDOGREL 75 MG TABLET PO SCH (09:03)
[2017-03-06] MEDS: ASPIRIN EC 81 MG TABLET PO SCH (09:03)
[2017-03-06] MEDS: PANTOPRAZOLE 40 MG TABLET PO SCH (09:03)
[2017-03-06] MEDS: CIPROFLOXACIN 500 MG TABLET PO SCH (09:04)
[2017-03-06] MEDS: ISOSORBIDE MONONITRATE 30 MG TABLET PO SCH (09:04)
[2017-03-06] MEDS: MECLIZINE 25 MG TABLET PO SCH (09:04)
[2017-03-06] MEDS ORDERED: CARVEDILOL 3.125 MG TABLET PO SCH (16:35)
--- NOTE | 2017-03-06 16:40 | Cardiology Progress Note ---
Assessment and Plan - Time spent with patient Time spent with patient: Greater than 30 minutes (1) NSTEMI (non-ST elevated myocardial infarction) Status: Resolved Assessment and plan: No more chest pain Inadvertently was not given normal saline as ordered Creatinine is still climbing, but slower We will give normal saline Heart rate is better so we will give a trial of low-dose of beta-ander with hold parameters Check CMP in the a.m. We will not send home now but when her renal function is improving. I discussed the above with the patient. She voices understanding and agrees with the plan. Current Visit: Yes (2) Contrast dye induced nephropathy Status: Acute Current Visit: Yes (3) Acute renal insufficiency Status: Acute Current Visit: Yes (4) Abnormal EKG Status: Chronic Current Visit: Yes (5) Advanced age Status: Chronic Current Visit: Yes (6) CAD (coronary artery disease) Status: Chronic Current Visit: Yes Qualifiers: Coronary Disease-Associated Artery/Lesion type: [place] artery [place] vs. transplanted heart: [place] heart Associated angina: without angina Qualified Code(s): I25.10 - Atherosclerotic heart disease of [place] coronary artery without angina pectoris (7) Hypertension Status: Chronic Current Visit: No (8) S/p nephrectomy Status: Resolved Current Visit: No Cardiology - PN: Subj Interval history: No chest pain or shortness of breath. Exam (Progress Note) - Constitutional Vitals: Period Temp Pulse Resp BP Sys/Hussein Pulse Ox Last 24 Hr 97.4 F-99.6 F 64-88 16-20 103-126/42-71 90-98 Exam: HEENT: Pupils equal, reactive to light and accommodation Neck: NoJVD or bruit Lungs clear to auscultation Heart: Regular rhythm rate with normal S1 and S2. Apical S4 Abdomen: No hepatosplenomegaly Spine/extremities: No clubbing, cyanosis, or edema Neuro: Nonfocal Psych: No depression or anxiety Result/EKG - Labs CBC & BMP: 03/06/17 04:48 03/06/17 04:48 Lab Results: I have reviewed the past 24 hour labs Labs: Laboratory Results - last 24 hr 03/06/17 03/06/17 03/06/17 04:48 04:48 04:48 WBC 11.5 RBC 3.55 L Hgb 10.6 L Hct 30.9 L MCV 87.0 MCH 30 MCHC 34.3 RDW 13.6 Plt Count 166 MPV 10.8 Neut % (Auto) 67.8 Lymph % (Auto) 16.4 L [place] % (Auto) 14.7 H Eos % (Auto) 0.3 Baso % (Auto) 0.3 Neut # (Auto) 7.8 H Lymph # (Auto) 1.9 [place] # (Auto) 1.7 H Eos # (Auto) 0.0 Baso # (Auto) 0.0 Immature Gran % 0.5 Nucleated RBC % 0.0 Immature Gran # 0.06 Nucleated RBCs # 0.00 Sodium 138 Potassium 4.0 Chloride 106 Carbon Dioxide 22 Anion Gap 14.0 BUN 34 H Creatinine 1.60 H GFR Calculation 34 BUN/Creatinine Ratio 21.00 H Glucose 85 Calculated Osmolality 281.7 Calcium 7.9 L Magnesium 2.0 Troponin I 24.000 H - EKG EKG results: interpreted by il Quality Measures - VTE Contraindication to Pharmacological VTE Prophylaxis: High Risk of Bleeding Specialty Discharge - Follow Up or Referrals
[2017-03-06 21:04] VITALS: BP 133/63
--- NOTE | 2017-03-07 02:22 | Event Note ---
ER note/procedure note/code note: Called to the telemetry floor for CODE BLUE. This 86-year-old black female who was admitted to the hospital for a non-ST elevation VT was taken to the [facility] they where unable to successfully stent her disease arteries few days ago. Patient went into cardiac arrest on telemetry floor ACLS protocol was started, upon arrival there is no pulse patient was agonal breathing. Patient was intubated successfully first attempt using a 7.5 ET tube with a MAC 4 blade vocal cords were visualized successfully passed through condensation on the tube positive end CO2 color change equal airway rise of the chest and breath sounds heard in both lung akbar. Several rounds of high-dose epinephrine was given bicarb was given calcium chloride was given amiodarone was given 300 mg. Patient was shocked 4 times incremental increases from 200 300 360 J. Patient was successfully resuscitated for about a minute then she quickly went into V. tach and V. fib where she was shocked again. Patient was resuscitated via Les. Patient was in cardiac arrest for approximately 40 minutes with resuscitation continuous. We failed to regain a pulse patient was pronounced family was notified. Patient was pronounced at 2003 hrs.
--- NOTE | 2017-03-07 16:24 | Discharge Summary ---
Hospital Course - Hospital Course Hospital Course: the patient was taken straight from the ER to the catheter lab because of suspicion of an MA. She was found to have an occluded obtuse marginal. Because of proximal circumflex tortuosity I could get a wire to a lesion but could not cross it. I then tried to get a balloon closer to it to advance the wire across but it would not track the hairpin curve of the proximal left circumflex. Thus, I felt she treated medically. Initially she is bradycardic so I could not add a beta ander. Her blood pressure slightly high so I added an AVERY inhibitor. Then her creatinine went up slightly, thought be contrast- induced nephropathy, so I held the AVERY inhibitor. Her creatinine was last at 1.6. I did not send her home that day, 03/06/17, because the creatinine had not begun to come down. Later that afternoon, she has sudden cardiac arrest. The ER physician try to resuscitate her-see his note. It was unsuccessful. It is my suspicion that she had a left ventricular free wall rupture. It will be the right time course for to occur and she had not been reperfused. Condolences were given her family. The body was released to the home. - Time spent with patient Time with patient DS: Greater than 30 minutes Diagnosis - Discharge Diagnosis (1) NSTEMI (non-ST elevated myocardial infarction) Status: Resolved (2) Contrast dye induced nephropathy Status: Acute (3) Acute renal insufficiency Status: Acute (4) Abnormal EKG Status: Chronic (5) Advanced age Status: Chronic (6) CAD (coronary artery disease) Status: Chronic (7) Hypertension Status: Chronic (8) S/p nephrectomy Status: Resolved (9) Cardiopulmonary arrest Status: Acute Specialty Discharge - Follow Up or Referrals Discharge Plan - Discharge Data Disposition: Condition at Discharge: Discharge Diet: other Activity: other Hygiene: other Weight Bearing at Discharge: other Driving: other - Discharge Medications No Action Aspirin [Children's Aspirin] 81 mg PO QAM Meclizine [Antivert] 25 mg PO BID Carvedilol [Carvedilol] 6.25 mg PO BID - Follow Up or Referral - Forms/Instructions Instructions: Myocardial Infarction (GEN), Left Heart Catheterization (DC), Heart Healthy Diet (GEN), Coronary Artery Disease in Women (GEN) Additional Discharge Instructions: condolences were given to the family. The body was released to the home. Exam - Constitutional Vitals: Period Temp Pulse Resp BP Sys/Hussein Pulse Ox Last 24 Hr 99.4 F 87 18 133/63 98 Exam: HEENT: Pupils equal, reactive to light and accommodation Neck: NoJVD or bruit Lungs clear to auscultation Heart: Regular rhythm rate with normal S1 and S2. Apical S4 Abdomen: No hepatosplenomegaly Spine/extremities: No clubbing, cyanosis, or edema Neuro: Nonfocal Psych: No depression or anxiety Discharge Results Procedures and tests throughout hospitalization: Pending Orders 03/05/17 13:17 Blood Culture Routine Labs on day of discharge: Preliminary micro results at discharge 03/05/17 13:17 Blood Culture - Preliminary Blood No growth at 1 day 03/05/17 13:17 Blood Culture - Preliminary Blood No growth at 1 day DS: Provider Date of admission: 03/03/17 13:49 Primary care physician: . No PCP Attending physician on admission: New Badillo MD Consults: 03/03/17 10:41 Consult to Cardiac Rehabilitation [CONS] Routine Reason for Cardiac Rehabilitation: Other Consult Comment: All of the above 03/04/17 09:47 Consult to Physical Therapy [CONS] Routine Reason for Physical Therapy: Evaluate and Treat Start Therapy: Today Consult Comment: DC today. Assist with amb and make dc recommendations. USes walker Discharging clinician: New Badillo MD
== END 2017-03-06 20:03 | disposition expired ==
LOC: EDUNIT# → EDBD → N.EDINP 07:53 → N.ED 07:53 → N.TELEN 10:42 → N.EDINP 12:21 → N.TELEN 14:15
PROVIDERS: ADMIT Internal Medicine Cardiovascular Disease; ATTEND Internal Medicine Cardiovascular Disease
PROC: CLCCHCL (ICD-10-PCS; 2017-03-03 12:45)